=== PATIENT | female | born 1965 | race Caucasian/White ===

== ENCOUNTER → 2016-12-05 | Outpatient (REF) | payer OTHER ==
[~2016-12-05] MED LIST: IBUP60TA PO; LISI40TAB PO; VICO5TAB16 PO; WELL75TA PO; valtrex OR
[2016-12-05 18:26] LABS: ALBUMIN 3.8 GM/DL (3.2-5.2); ALBUMIN/GLOBULIN RATIO 1.19 (1.00-1.93); ALKALINE PHOSPHATASE 83 U/L (45-117); ALT/SGPT 21 U/L (12-78); ANION GAP 10 MEQ/L (8-16); AST/SGOT 11 U/L (15-37); BILIRUBIN,TOTAL 0.2 MG/DL (0.2-1.0); BLOOD UREA NITROGEN 13 MG/DL (7-18); CALCIUM LEVEL 9.3 MG/DL (8.5-10.1); CARBON DIOXIDE LEVEL 30 MEQ/L (21-32); CHLORIDE LEVEL 102 MEQ/L (98-107); CHOLESTEROL LEVEL 255 MG/DL (<200); CREATININE FOR GFR 0.62 MG/DL (0.55-1.02); FREE T4 0.82 NG/DL (0.76-1.46); GLOMERULAR FILTRATION RATE > 60.0 (>51); GLUCOSE, FASTING 90 MG/DL (70-105); POTASSIUM SERUM 4.6 MEQ/L (3.5-5.1); SODIUM LEVEL 142 MEQ/L (136-145); TRIGLYCERIDES LEVEL 244 MG/DL (<150)
[2016-12-05 19:19] LABS: MEAN CORPUSCULAR HEMOGLOBIN 31.7 pg (27.0-33.0); MEAN CORPUSCULAR HGB CONC 34.1 g/dl (32.0-36.5); RED CELL DISTRIBUTION WIDTH 12.4 % (11.5-14.5); WHITE BLOOD COUNT 6.3 K/mm3 (4.0-10.0)
== END ==
LOC: M SFHCLERA 14:42
PROVIDERS: ATTEND Family Medicine
DX: E89.41 Symptomatic postprocedural ovarian failure (principal)

== ENCOUNTER → 2017-04-15 | Outpatient (CLI) | payer OTHER ==
--- NOTE | 2017-04-15 11:57 | REPMRS ---
Patient History The patient states she has not had a clinical breast exam in over a year. Patient is postmenopausal. Family history of breast cancer in paternal grandmother at age 50 or over and endometrial cancer in maternal grandmother at age 50 or over. Reductions of both breasts, 2009. Digital Mammo Screening Bilat: April 15, 2017 - Exam #: [id number] Bilateral CC and MLO view(s) were taken. Technologists: Kasey Chaves, Technologist; Aravind Cole, Technologist Prior study comparison: April 01, 2015, digital woman screen mammo, performed at [facility]. October 19, 2011, digital bilateral screening mammo, performed at [facility]. FINDINGS: There are scattered fibroglandular densities. There has been no change in the appearance of the mammogram from the prior studies. There is a mild amount of scattered fibroglandular density which is fairly symmetric. There is no interval development of dominant mass, architectural distortion, or clustered microcalcification suggestive of malignancy. ASSESSMENT: BI-RADS/ACR category 1 mammogram. Negative. Recommendation Routine screening mammogram in 1 year (for women over age 40). This mammogram was interpreted with the aid of an FDA-approved computer-aided dectection system. Electronically Signed By: Cosmo Dominique MD 04/15/17 [id number]
== END ==
LOC: M RAD 09:56
PROVIDERS: ATTEND Family Medicine
DX: Z12.31 Encounter for screening mammogram for malignant neoplasm of breast (principal)

== ENCOUNTER → 2017-05-28 | Outpatient (REF) | payer OTHER | LOC: M SFHCLERA 13:46 | PROVIDERS: ATTEND Family Medicine | DX: N30.00 Acute cystitis without hematuria (principal) ==

== ENCOUNTER → 2018-10-03 | Outpatient (REF) | payer OTHER ==
[2018-10-03 15:55] LABS: BASO % 0.4 % (0.0-1.0); EOS # 0.1 10^3/uL (0.0-0.50); HEMATOCRIT 45.6 % (36.0-47.0); HEMOGLOBIN 15.1 g/dl (12.0-15.5); LYMPH # 1.9 10^3/uL (1.5-4.5); LYMPH % 37.1 % (24.0-44.0); MEAN CORPUSCULAR HEMOGLOBIN 29.9 pg (27.0-33.0); MEAN CORPUSCULAR HGB CONC 33.1 g/dl (32.0-36.5); MEAN CORPUSCULAR VOLUME 90.3 fl (80.0-96.0); MONO # 0.4 10^3/uL (0.0-0.8); MONO % 7.2 % (0.0-5.0); NEUTROPHILS # 2.7 10^3/uL (1.8-7.7); NEUTROPHILS % 53.3 % (36.0-66.0); PLATELET COUNT, AUTOMATED 380 10^3/uL (150-450); RED BLOOD COUNT 5.05 10^6/uL (4.00-5.40)
[2018-10-03 16:00] LABS: ALBUMIN 4.2 GM/DL (3.2-5.2); ALT/SGPT 29 U/L (12-78); BILIRUBIN,TOTAL 0.5 MG/DL (0.2-1.0); BLOOD UREA NITROGEN 14 MG/DL (7-18); CALCIUM LEVEL 8.8 MG/DL (8.5-10.1); CARBON DIOXIDE LEVEL 30 MEQ/L (21-32); CHLORIDE LEVEL 101 MEQ/L (98-107); CHOLESTEROL LEVEL 257 MG/DL (<200); CHOLESTEROL RISK RATIO 3.953 (<5); CREATININE FOR GFR 0.71 MG/DL (0.55-1.30); GLOMERULAR FILTRATION RATE > 60.0 (>51); GLUCOSE, FASTING 90 MG/DL (70-100); HDL CHOLESTEROL 65 MG/DL (>40); LDL CHOLESTEROL 169 MG/DL (<100); NON-HDL-C 192 MG/DL; POTASSIUM SERUM 4.3 MEQ/L (3.5-5.1); SODIUM LEVEL 140 MEQ/L (136-145); TOTAL PROTEIN 7.8 GM/DL (6.4-8.2); TRIGLYCERIDES LEVEL 115 MG/DL (<150)
[2018-10-03 16:20] LABS: HEMOGLOBIN A1c 5.8 %
== END ==
LOC: M SFHCLERA 15:40
PROVIDERS: ATTEND Nurse Practitioner Family
DX: I10 Essential (primary) hypertension (principal); E78.2 Mixed hyperlipidemia

== ENCOUNTER → 2018-10-24 | Outpatient (CLI) | payer OTHER ==
[~2018-10-24] MED LIST changes: +IBUP600T42 PO; -IBUP60TA PO; +LISI40TA52 PO; -LISI40TAB PO; -VICO5TAB16 PO; +VICO5TAB17 PO
--- NOTE | 2018-10-24 16:17 | REPMRS ---
Patient History The patient states she has not had a clinical breast exam in over a year. Family history of breast cancer at age 50 or over in paternal grandmother, endometrial cancer at age 50 or over in maternal grandmother. Reductions of both breasts, 2009. Digital Mammo Screening Bilat: October 24, 2018 - Exam #: [id number] Bilateral CC and MLO view(s) were taken. Technologist: Ronel Baron, Technologist Prior study comparison: April 15, 2017, bilateral digital mammo screening bilat performed at [facility]. April 01, 2015, digital woman screen mammo, performed at [facility]. October 19, 2011, digital bilateral screening mammo, performed at [facility]. FINDINGS: There are scattered fibroglandular densities. There has been no change in the appearance of the mammogram from the prior studies. There is a mild amount of scattered fibroglandular density which is fairly symmetric. There is no interval development of dominant mass, architectural distortion, or clustered microcalcification suggestive of malignancy. 3-D tomosynthesis shows no additional findings. Assessment: BI-RADS/ACR category 1 mammogram. Negative Mammogram. Recommendation Routine screening mammogram of both breasts in 1 year (for women over age 40). This patient's Lifetime Breast Cancer RIsk is estimated at 13.9 %. This mammogram was interpreted with the aid of an FDA-approved computer-aided dectection system. Electronically Signed By: Cosmo Dominique MD 10/24/18 [id number]
== END ==
LOC: M RAD 14:53
PROVIDERS: ATTEND Nurse Practitioner Family
DX: Z12.31 Encounter for screening mammogram for malignant neoplasm of breast (principal)

== ENCOUNTER → 2019-02-23 | Outpatient (CLI) | payer OTHER ==
--- NOTE | 2019-02-23 14:41 | REP ---
REASON: Pain. There is minimal patellar marginal osteophytosis. The compartments are symmetric and well maintained. There is no fracture, dislocation, or subluxation. IMPRESSION: Slight chronic changes as described above. Electronically Signed by Adams Kang DO 02/23/2019 04:39 P
== END ==
LOC: M LRY 10:03
PROVIDERS: ATTEND Nurse Practitioner Family
DX: M25.762 Osteophyte, left knee (principal)

== ENCOUNTER → 2019-12-07 | Outpatient (CLI) | payer OTHER ==
--- NOTE | 2019-12-08 01:41 | REPPI ---
Clinical: Degenerative lower back pain. Technique: AP, lateral, bilateral oblique, and coned-down views of the lumbosacral spine. Findings: Alignment and lordosis maintained. Vertebral bodies are intact. No acute fracture / compression injury or subluxation. Mild hypertrophic facet changes at L3 through S1 along with minimal endplate sclerosis and minimal disc space narrowing suggested. Remainder examination appears normal. No obvious spondylolysis or spondylolisthesis. Impression: Mild degenerative spondylosis involving the lower lumbar spine. Electronically Signed by Thomas Dodson MD 12/08/2019 01:33 A
== END ==
LOC: M PLAIMG 14:47
PROVIDERS: ATTEND Physician Assistant Medical
DX: M51.36 Other intervertebral disc degeneration, lumbar region (principal)

== ENCOUNTER → 2020-05-06 | Outpatient (REF) | payer OTHER ==
[2020-05-06 13:06] LABS: BASO % 0.7 % (0.0-1.0); EOS # 0.2 10^3/uL (0.0-0.5); EOS % 2.5 % (0.0-3.0); HEMATOCRIT 42.8 % (36.0-47.0); HEMOGLOBIN 13.4 g/dl (12.0-15.5); LYMPH # 2.3 10^3/uL (1.5-5.0); LYMPH % 38.1 % (24.0-44.0); MEAN CORPUSCULAR HEMOGLOBIN 28.6 pg (27.0-33.0); MEAN CORPUSCULAR HGB CONC 31.3 g/dl (32.0-36.5); MEAN CORPUSCULAR VOLUME 91.3 fl (80.0-96.0); MONO # 0.4 10^3/uL (0.0-0.8); MONO % 6.8 % (0.0-5.0); NEUTROPHILS # 3.1 10^3/uL (1.5-8.5); NEUTROPHILS % 51.6 % (36.0-66.0); PLATELET COUNT, AUTOMATED 357 10^3/uL (150-450); RED BLOOD COUNT 4.69 10^6/uL (4.00-5.40)
[2020-05-06 13:29] LABS: ALBUMIN 3.7 GM/DL (3.2-5.2); ALT/SGPT 25 U/L (12-78); BILIRUBIN,TOTAL 0.3 MG/DL (0.2-1.0); BLOOD UREA NITROGEN 13 MG/DL (7-18); CALCIUM LEVEL 9.2 MG/DL (8.5-10.1); CARBON DIOXIDE LEVEL 30 MEQ/L (21-32); CHLORIDE LEVEL 104 MEQ/L (98-107); CHOLESTEROL LEVEL 239 MG/DL (<200); CHOLESTEROL RISK RATIO 3.414 (<5); CREATININE FOR GFR 0.72 MG/DL (0.55-1.30); GLOMERULAR FILTRATION RATE > 60.0 (>51); GLUCOSE, FASTING 90 MG/DL (70-100); HDL CHOLESTEROL 70 MG/DL (>40); LDL CHOLESTEROL 145 MG/DL (<100); NON-HDL-C 169 MG/DL; POTASSIUM SERUM 4.4 MEQ/L (3.5-5.1); SODIUM LEVEL 139 MEQ/L (136-145); TOTAL PROTEIN 7.4 GM/DL (6.4-8.2); TRIGLYCERIDES LEVEL 120 MG/DL (<150)
[2020-05-06 13:35] LABS: TOTAL 25(OH) VITAMIN D 69.5 NG/ML (30.0-100.0)
== END ==
LOC: M PLALAB 09:56
PROVIDERS: ATTEND Nurse Practitioner Family
DX: Z00.00 Encounter for general adult medical examination without abnormal findings (principal)

== ENCOUNTER → 2020-05-06 | Outpatient (CLI) | payer OTHER ==
--- NOTE | 2020-05-06 11:10 | REPMRS ---
Patient History The patient states she had a clinical breast exam in September 2019. Family history of breast cancer at age 50 or over in paternal grandmother, endometrial cancer at age 50 or over in maternal grandmother. Reductions of both breasts, 2008. 3D TOMOSYNTHESIS WAS PERFORMED. The [place] lifetime risk for breast cancer is 13.3%. Volpara breast density b. Digital Woman Screen Mammo: May 06, 2020 - Exam #: [id number] Bilateral CC and MLO view(s) were taken. Technologist: RT Ольга Prior study comparison: October 24, 2018, bilateral digital mammo screening bilat, performed at [facility]. April 15, 2017, bilateral digital mammo screening bilat, performed at [facility]. FINDINGS: There are scattered fibroglandular densities. There has been no change in the appearance of the mammogram from the prior studies. There is a mild amount of residual fibroglandular tissue which is fairly symmetric. There is no interval development of dominant mass, architectural distortion, or clustered microcalcification suggestive of malignancy. Assessment: BI-RADS/ACR category 1 mammogram. Negative Mammogram. Recommendation Routine screening mammogram in 1 year (for women over age 40). This mammogram was interpreted with the aid of an FDA-approved computer-aided dectection system. Electronically Signed By: Kevin Harris MD 05/06/20 [id number]
== END ==
LOC: M WHC 10:07
PROVIDERS: ATTEND Nurse Practitioner Family
DX: Z12.31 Encounter for screening mammogram for malignant neoplasm of breast (principal); Z98.890 Other specified postprocedural states

== ENCOUNTER → 2020-10-23 | Outpatient (REF) | payer OTHER | LOC: M LAB REF 17:42 | PROVIDERS: ATTEND Physician Assistant | DX: R30.0 Dysuria (principal) ==

== ENCOUNTER → 2020-10-31 | Outpatient (REF) | payer OTHER | LOC: M SFHCLERA 10:56 | PROVIDERS: ATTEND Nurse Practitioner Family | DX: R35.0 Frequency of micturition (principal) ==

== ENCOUNTER → 2020-11-24 | Outpatient (REF) | payer OTHER | LOC: M SFHCLERA 15:58 | PROVIDERS: ATTEND Nurse Practitioner Family | DX: R35.0 Frequency of micturition (principal) ==

== ENCOUNTER → 2021-02-14 | Outpatient (REF) | payer OTHER ==
[2021-02-14 13:14] LABS: APPEARANCE, URINE HAZY (CLEAR); BACTERIA, URINE AUTO 1+ (NEGATIVE); BILIRUBIN, URINE AUTO NEGATIVE (NEGATIVE); BLOOD, URINE BLOOD NEGATIVE (NEGATIVE); COLOR, URINE YELLOW (YELLOW); GLUCOSE, URINE (UA) AUTO NEGATIVE (NEGATIVE); KETONE, URINE AUTO NEGATIVE (NEGATIVE); LEUKOCYTE ESTERASE, URINE AUTO 1+ (NEGATIVE); MUCUS, URINE SMALL (NEGATIVE); NITRITE, URINE AUTO NEGATIVE (NEGATIVE); PROTEIN, URINE AUTO NEGATIVE (NEGATIVE); RBC, URINE AUTO 0 /HPF (0-3); SPECIFIC GRAVITY URINE AUTO 1.025 (1.002-1.035); SQUAMOUS EPITHELIAL CELL UR AU 0 /HPF (0-6); UROBILINOGEN, URINE AUTO 0.2 mg/dL (0.0-2.0); WBC, URINE AUTO 37 /HPF (0-3)
== END ==
LOC: M SMT 11:12
PROVIDERS: ATTEND Nurse Practitioner Family
DX: R39.89 Other symptoms and signs involving the genitourinary system (principal)

== ENCOUNTER → 2021-02-21 | Outpatient (REF) | payer OTHER ==
[2021-02-21 20:27] LABS: APPEARANCE, URINE CLEAR (CLEAR); BACTERIA, URINE AUTO NEGATIVE (NEGATIVE); BILIRUBIN, URINE AUTO NEGATIVE (NEGATIVE); BLOOD, URINE BLOOD NEGATIVE (NEGATIVE); COLOR, URINE STRAW (YELLOW); GLUCOSE, URINE (UA) AUTO NEGATIVE (NEGATIVE); KETONE, URINE AUTO NEGATIVE (NEGATIVE); LEUKOCYTE ESTERASE, URINE AUTO NEGATIVE (NEGATIVE); NITRITE, URINE AUTO NEGATIVE (NEGATIVE); PROTEIN, URINE AUTO NEGATIVE (NEGATIVE); RBC, URINE AUTO 0 /HPF (0-3); SPECIFIC GRAVITY URINE AUTO 1.008 (1.002-1.035); SQUAMOUS EPITHELIAL CELL UR AU 0 /HPF (0-6); UROBILINOGEN, URINE AUTO 0.2 mg/dL (0.0-2.0); WBC, URINE AUTO 0 /HPF (0-3)
== END ==
LOC: M LAB REF 19:59
PROVIDERS: ATTEND Nurse Practitioner Family
DX: N39.0 Urinary tract infection, site not specified (principal)

== ENCOUNTER → 2021-04-24 | Outpatient (CLI) | payer OTHER ==
[2021-04-24 20:17] LABS: HEMOGLOBIN A1c 5.6 %
== END ==
LOC: M WUC 15:52
PROVIDERS: ATTEND Surgery
DX: Z86.39 Personal history of other endocrine, nutritional and metabolic disease (principal)

== ENCOUNTER → 2021-09-06 | Outpatient (CLI) | payer OTHER | LOC: M WHC 12:39 | PROVIDERS: ATTEND Nurse Practitioner Family | DX: Z12.31 Encounter for screening mammogram for malignant neoplasm of breast (principal) ==

== ENCOUNTER → 2021-10-30 | Outpatient (REF) | payer OTHER ==
[~2021-10-30] MED LIST changes: +AMOX500C PO; +FLUC10TA PO; +GABA-1171 PO; +HYDR-3490 PO; +LEXA1TAB2 PO
== END ==
LOC: M SFHCLERA 15:38
PROVIDERS: ATTEND Family Medicine
DX: J02.9 Acute pharyngitis, unspecified (principal)

== ENCOUNTER → 2021-11-01 | Outpatient (CLI) | payer OTHER | LOC: M LABSMTC 09:46 | PROVIDERS: ATTEND Anesthesiology | DX: Z01.818 Encounter for other preprocedural examination (principal); Z11.52 Encounter for screening for COVID-19 ==

== ENCOUNTER 2021-11-06 09:21 | Day surgery (SDC) | payer OTHER ==
[~2021-11-06] VITALS: Ht 152.4 cm; Wt 99.5 kg
[~2021-11-06 09:21] MED LIST changes: +NS 1,000 ML IV ONE
[2021-11-06] MEDS ORDERED: fentaNYL 100 MCG/2 ML INJECTION As Ordered ONE (11:02)
[2021-11-06] MEDS ORDERED: LIDOCAINE 2% 100MG/5ML SDV (FOR ANES.) As Ordered ONE (11:22)
[2021-11-06] MEDS ORDERED: propofoL 200 MG/20 ML VIAL As Ordered ONE (11:22)
[2021-11-06 11:39] VITALS: BP 145/95
== END 2021-11-06 11:40 | disposition home or self-care (01) ==
LOC: M OPP 09:21
PROVIDERS: ATTEND Internal Medicine Gastroenterology
DX: Z01.818 Encounter for other preprocedural examination (principal); E66.01 Morbid (severe) obesity due to excess calories; K29.70 Gastritis, unspecified, without bleeding; Z79.1 Long term (current) use of non-steroidal anti-inflammatories (NSAID); Z79.899 Other long term (current) drug therapy; Z80.3 Family history of malignant neoplasm of breast; Z80.52 Family history of malignant neoplasm of bladder
CPT/HCPCS: 43239; 88305; J3010

== ENCOUNTER → 2022-01-15 | Outpatient (CLI) | payer OTHER ==
[~2022-01-15] MED LIST changes: -NS 1,000 ML IV ONE
[2022-01-15 11:33] LABS: BASO % 0.7 % (0.0-1.0); EOS # 0.1 10^3/uL (0.0-0.5); HEMATOCRIT 41.7 % (36.0-47.0); HEMOGLOBIN 13.6 g/dl (12.0-15.5); LYMPH # 2.1 10^3/uL (1.5-5.0); LYMPH % 35.2 % (24.0-44.0); MEAN CORPUSCULAR HEMOGLOBIN 29.9 pg (27.0-33.0); MEAN CORPUSCULAR HGB CONC 32.6 g/dl (32.0-36.5); MEAN CORPUSCULAR VOLUME 91.6 fl (80.0-96.0); MONO # 0.5 10^3/uL (0.0-0.8); MONO % 7.6 % (2.0-8.0); NEUTROPHILS # 3.3 10^3/uL (1.5-8.5); NEUTROPHILS % 54.2 % (36.0-66.0); PLATELET COUNT, AUTOMATED 380 10^3/uL (150-450); RED BLOOD COUNT 4.55 10^6/uL (4.00-5.40)
[2022-01-15 17:44] LABS: ALBUMIN 3.6 GM/DL (3.2-5.2); ALT/SGPT 30 U/L (12-78); BILIRUBIN,TOTAL 0.4 MG/DL (0.2-1.0); BLOOD UREA NITROGEN 10 MG/DL (7-18); CALCIUM LEVEL 9.3 MG/DL (8.5-10.1); CARBON DIOXIDE LEVEL 31 MEQ/L (21-32); CHLORIDE LEVEL 107 MEQ/L (98-107); CREATININE FOR GFR 0.67 MG/DL (0.55-1.30); GLOMERULAR FILTRATION RATE > 60.0 (>51); GLUCOSE, FASTING 103 MG/DL (70-100); POTASSIUM SERUM 4.1 MEQ/L (3.5-5.1); SODIUM LEVEL 141 MEQ/L (136-145); TOTAL PROTEIN 6.9 GM/DL (6.4-8.2)
== END ==
LOC: M WUC 09:04
PROVIDERS: ATTEND Surgery
DX: Z01.812 Encounter for preprocedural laboratory examination (principal); Z86.39 Personal history of other endocrine, nutritional and metabolic disease

== ENCOUNTER → 2022-03-22 | Outpatient (CLI) | payer OTHER ==
[2022-03-22 17:21] LABS: BASO # 0.1 10^3/uL (0.0-0.2); BASO % 0.5 % (0.0-1.0); EOS # 0.1 10^3/uL (0.0-0.5); EOS % 1.5 % (0.0-3.0); HEMATOCRIT 42.1 % (36.0-47.0); HEMOGLOBIN 14.1 g/dl (12.0-15.5); LYMPH # 3.5 10^3/uL (1.5-5.0); LYMPH % 37.2 % (24.0-44.0); MEAN CORPUSCULAR HEMOGLOBIN 30.8 pg (27.0-33.0); MEAN CORPUSCULAR HGB CONC 33.5 g/dl (32.0-36.5); MEAN CORPUSCULAR VOLUME 91.9 fl (80.0-96.0); MONO # 0.6 10^3/uL (0.0-0.8); MONO % 6.7 % (2.0-8.0); NEUTROPHILS # 5.1 10^3/uL (1.5-8.5); NEUTROPHILS % 53.7 % (36.0-66.0); PLATELET COUNT, AUTOMATED 405 10^3/uL (150-450); RED BLOOD COUNT 4.58 10^6/uL (4.00-5.40); WHITE BLOOD COUNT 9.4 10^3/uL (4.0-10.0)
[2022-03-22 18:10] LABS: ALT/SGPT 26 U/L (12-78); BILIRUBIN,TOTAL 0.4 MG/DL (0.2-1.0); BLOOD UREA NITROGEN 10 MG/DL (7-18); CALCIUM LEVEL 9.2 MG/DL (8.5-10.1); CARBON DIOXIDE LEVEL 28 MEQ/L (21-32); CHLORIDE LEVEL 103 MEQ/L (98-107); CREATININE FOR GFR 0.68 MG/DL (0.55-1.30); GLOMERULAR FILTRATION RATE > 60.0 (>51); GLUCOSE, FASTING 98 MG/DL (70-100); POTASSIUM SERUM 3.9 MEQ/L (3.5-5.1); SODIUM LEVEL 138 MEQ/L (136-145); TOTAL PROTEIN 7.4 GM/DL (6.4-8.2)
== END ==
LOC: M WUC 15:27
PROVIDERS: ATTEND Surgery
DX: Z01.812 Encounter for preprocedural laboratory examination (principal); Z86.39 Personal history of other endocrine, nutritional and metabolic disease

== ENCOUNTER → 2022-04-23 | Outpatient (CLI) | payer OTHER ==
[2022-04-23 11:18] LABS: BASO # 0.1 10^3/uL (0.0-0.2); EOS # 0.1 10^3/uL (0.0-0.5); EOS % 2.4 % (0.0-3.0); HEMOGLOBIN 13.7 g/dl (12.0-15.5); LYMPH # 1.9 10^3/uL (1.5-5.0); LYMPH % 38.8 % (24.0-44.0); MEAN CORPUSCULAR HGB CONC 32.6 g/dl (32.0-36.5); MEAN CORPUSCULAR VOLUME 91.9 fl (80.0-96.0); MONO # 0.3 10^3/uL (0.0-0.8); MONO % 6.4 % (2.0-8.0); NEUTROPHILS # 2.5 10^3/uL (1.5-8.5); PLATELET COUNT, AUTOMATED 339 10^3/uL (150-450); RED BLOOD COUNT 4.57 10^6/uL (4.00-5.40)
[2022-04-23 11:22] LABS: HEMATOCRIT 41.5 % (36.0-47.0)
[2022-04-23 12:13] LABS: HEMOGLOBIN A1c 5.6 %
[2022-04-23 12:20] LABS: ALBUMIN 3.9 GM/DL (3.2-5.2); ALT/SGPT 27 U/L (12-78); BILIRUBIN,TOTAL 0.3 MG/DL (0.2-1.0); BLOOD UREA NITROGEN 11 MG/DL (7-18); CALCIUM LEVEL 9.2 MG/DL (8.5-10.1); CARBON DIOXIDE LEVEL 26 MEQ/L (21-32); CHLORIDE LEVEL 107 MEQ/L (98-107); CREATININE FOR GFR 0.56 MG/DL (0.55-1.30); FERRITIN 94 NG/ML (8-252); GLOMERULAR FILTRATION RATE > 60.0 (>51); GLUCOSE, FASTING 74 MG/DL (70-100); IRON (FE) 103 UG/DL (50-170); MAGNESIUM LEVEL 2.1 MG/DL (1.8-2.4); PERCENT SATURATION 37.7 % (13.2-45.0); PHOSPHORUS LEVEL 3.6 MG/DL (2.5-4.9); SODIUM LEVEL 140 MEQ/L (136-145); TOTAL IRON BINDING CAPACITY 273 UG/DL (250-450); TOTAL PROTEIN 6.8 GM/DL (6.4-8.2)
[2022-04-23 13:15] LABS: TOTAL 25(OH) VITAMIN D 58.5 NG/ML (30.0-100.0); VITAMIN B12 LEVEL 1150 PG/ML (247-911)
== END ==
LOC: M WUC 08:51
PROVIDERS: ATTEND Surgery
DX: K91.2 Postsurgical malabsorption, not elsewhere classified (principal)

== ENCOUNTER → 2022-10-24 | Outpatient (CLI) | payer OTHER ==
[2022-10-24 19:46] LABS: BASO # 0.1 10^3/uL (0.0-0.2); BASO % 0.6 % (0.0-1.0); EOS # 0.1 10^3/uL (0.0-0.5); HEMATOCRIT 40.3 % (36.0-47.0); HEMATOCRIT 40.5 % (36.0-47.0); HEMOGLOBIN 13.6 g/dl (12.0-15.5); LYMPH # 2.9 10^3/uL (1.5-5.0); LYMPH % 31.5 % (24.0-44.0); MEAN CORPUSCULAR HEMOGLOBIN 30.8 pg (27.0-33.0); MEAN CORPUSCULAR HGB CONC 33.6 g/dl (32.0-36.5); MEAN CORPUSCULAR VOLUME 91.8 fl (80.0-96.0); MONO # 0.4 10^3/uL (0.0-0.8); MONO % 4.8 % (2.0-8.0); NEUTROPHILS # 5.6 10^3/uL (1.5-8.5); NEUTROPHILS % 61.9 % (36.0-66.0); PLATELET COUNT, AUTOMATED 358 10^3/uL (150-450); RED BLOOD COUNT 4.41 10^6/uL (4.00-5.40); WHITE BLOOD COUNT 9.1 10^3/uL (4.0-10.0)
[2022-10-24 19:47] LABS: TOTAL IRON BINDING CAPACITY 320 UG/DL (250-425)
[2022-10-24 19:48] LABS: ALKALINE PHOSPHATASE 71 U/L (46-116); ALT/SGPT 18 U/L (7.0-40); AST/SGOT 14 U/L (<34); BILIRUBIN,TOTAL 0.4 MG/DL (0.3-1.2); BLOOD UREA NITROGEN 26 MG/DL (9-23); CALCIUM LEVEL 9.5 MG/DL (8.5-10.1); CARBON DIOXIDE LEVEL 30 MMOL/L (20-31); CHLORIDE LEVEL 99 MMOL/L (98-107); CREATININE FOR GFR 0.56 MG/DL (0.55-1.30); GLOMERULAR FILTRATION RATE > 60.0 (>51); GLUCOSE, FASTING 91 MG/DL (60-100); IRON (FE) 41 UG/DL (50-170); MAGNESIUM LEVEL 2.1 MG/DL (1.8-2.4); PERCENT SATURATION 12.8 % (13.2-45.0); PHOSPHORUS LEVEL 3.7 MG/DL (2.5-4.9); POTASSIUM SERUM 3.6 MMOL/L (3.5-5.1); SODIUM LEVEL 135 MMOL/L (136-145); TOTAL PROTEIN 7.2 G/DL (5.7-8.2)
[2022-10-24 19:50] LABS: FERRITIN 62.2 NG/ML (7.3-270.7); TOTAL 25(OH) VITAMIN D 60.1 NG/ML (20.0-100.0); VITAMIN B12 LEVEL 1252 PG/ML (211-911)
[2022-10-24 20:51] LABS: HEMOGLOBIN A1c 5.2 % (4.0-6.0)
== END ==
LOC: M WUC 15:18
PROVIDERS: ATTEND Physician Assistant Surgical
DX: K91.2 Postsurgical malabsorption, not elsewhere classified (principal); Z98.84 Bariatric surgery status; E55.9 Vitamin D deficiency, unspecified; Z86.39 Personal history of other endocrine, nutritional and metabolic disease

== ENCOUNTER → 2022-11-16 | Outpatient (CLI) | payer OTHER | LOC: M WHC 12:30 | PROVIDERS: ATTEND Specialist | DX: Z12.31 Encounter for screening mammogram for malignant neoplasm of breast (principal) ==

== ENCOUNTER → 2023-11-07 | Outpatient (CLI) | payer OTHER ==
[2023-11-07 11:18] LABS: BASO % 0.8 % (0.0-1.0); EOS # 0.1 10^3/uL (0.0-0.5); EOS % 1.8 % (0.0-3.0); HEMATOCRIT 39.6 % (36.0-47.0); HEMOGLOBIN 13.1 g/dl (12.0-15.5); LYMPH # 2.2 10^3/uL (1.5-5.0); LYMPH % 44.4 % (24.0-44.0); MEAN CORPUSCULAR HEMOGLOBIN 30.5 pg (27.0-33.0); MEAN CORPUSCULAR HGB CONC 33.1 g/dl (32.0-36.5); MEAN CORPUSCULAR VOLUME 92.3 fl (80.0-96.0); MONO # 0.4 10^3/uL (0.0-0.8); MONO % 7.7 % (2.0-8.0); NEUTROPHILS # 2.2 10^3/uL (1.5-8.5); NEUTROPHILS % 45.3 % (36.0-66.0); PLATELET COUNT, AUTOMATED 355 10^3/uL (150-450); RED BLOOD COUNT 4.29 10^6/uL (4.00-5.40); WHITE BLOOD COUNT 4.9 10^3/uL (4.0-10.0)
[2023-11-07 11:48] LABS: IRON (FE) 119 UG/DL (50-170); PERCENT SATURATION 37.4 % (13.2-45.0); TOTAL IRON BINDING CAPACITY 318 UG/DL (250-425)
[2023-11-07 11:49] LABS: ALBUMIN 3.9 G/DL (3.2-5.2); ALKALINE PHOSPHATASE 58 U/L (46-116); ALT/SGPT 20 U/L (7.0-40); AST/SGOT 11 U/L (<34); BILIRUBIN,TOTAL 0.6 MG/DL (0.3-1.2); BLOOD UREA NITROGEN 16 MG/DL (9-23); CALCIUM LEVEL 9.2 MG/DL (8.5-10.1); CARBON DIOXIDE LEVEL 30 MMOL/L (20-31); CHLORIDE LEVEL 105 MMOL/L (98-107); CHOLESTEROL LEVEL 250 MG/DL (<200); GLOMERULAR FILTRATION RATE > 60.0 (>51); GLUCOSE, FASTING 84 MG/DL (60-100); LDL CHOLESTEROL 146.4 MG/DL (<100); POTASSIUM SERUM 4.2 MMOL/L (3.5-5.1); SODIUM LEVEL 138 MMOL/L (136-145); TOTAL PROTEIN 6.6 G/DL (5.7-8.2); TRIGLYCERIDES LEVEL 73 MG/DL (<150)
[2023-11-07 11:51] LABS: FERRITIN 79.6 NG/ML (7.3-270.7); TOTAL 25(OH) VITAMIN D 55.8 NG/ML (20.0-100.0)
[2023-11-07 11:52] LABS: FOLATE > 24.00 NG/ML (>5.4)
[2023-11-07 11:53] LABS: VITAMIN B12 LEVEL 1766 PG/ML (211-911)
== END ==
LOC: M WUC 08:17
PROVIDERS: ATTEND Family Medicine
DX: E66.3 Overweight (principal); Z98.84 Bariatric surgery status

== ENCOUNTER → 2023-11-29 | Outpatient (CLI) | payer OTHER | LOC: M WHC 09:38 | PROVIDERS: ATTEND Family Medicine | DX: Z12.31 Encounter for screening mammogram for malignant neoplasm of breast (principal) ==

== ENCOUNTER 2024-07-24 11:13 | Emergency (ER) | payer OTHER ==
[2024-07-24] MEDS ORDERED: LISI20TA33 PO (11:31)
[2024-07-24 12:05] LABS: BASO % 0.4 % (0.0-1.0); EOS % 0.5 % (0.0-3.0); HEMATOCRIT 36.1 % (36.0-47.0); HEMOGLOBIN 12.6 g/dl (12.0-15.5); LYMPH % 25.1 % (24.0-44.0); MEAN CORPUSCULAR HEMOGLOBIN 31.1 pg (27.0-33.0); MEAN CORPUSCULAR HGB CONC 34.9 g/dl (32.0-36.5); MEAN CORPUSCULAR VOLUME 89.1 fl (80.0-96.0); MONO # 0.3 10^3/uL (0.0-0.8); MONO % 3.8 % (2.0-8.0); NEUTROPHILS # 5.6 10^3/uL (1.5-8.5); NEUTROPHILS % 70.1 % (36.0-66.0); PLATELET COUNT, AUTOMATED 363 10^3/uL (150-450); RED BLOOD COUNT 4.05 10^6/uL (4.00-5.40)
[2024-07-24] MEDS ORDERED: ISOVUE-370 76% 100ML VIAL As Ordered ONE (12:06)
[2024-07-24 12:19] LABS: INR 0.96; PARTIAL THROMBOPLASTIN TIME 26.8 SECONDS (24.8-34.2); PROTHROMBIN TIME 13.1 SECONDS (12.5-14.5)
[2024-07-24 13:09] LABS: CK-MB VALUE MASS < 1.0 NG/ML (<3.6)
[2024-07-24 13:11] LABS: CPK CREATINE PHOSPHOKINASE 41 U/L (34-145); MB/CK RELATIVE INDEX 2.43 (< OR =4)
[2024-07-24 14:42] LABS: ALKALINE PHOSPHATASE 59 U/L (35-104); ALT/SGPT 16 U/L (7.0-40); AST/SGOT 12 U/L (<34); BILIRUBIN,DIRECT < 0.1 MG/DL (<0.4); BILIRUBIN,TOTAL 0.4 MG/DL (0.3-1.2); CK-MB VALUE MASS < 1.0 NG/ML (<3.6); CPK CREATINE PHOSPHOKINASE 49 U/L (34-145); MB/CK RELATIVE INDEX 2.04 (< OR =4); TOTAL PROTEIN 7.4 G/DL (5.7-8.2)
[2024-07-24 16:14] LABS: MAGNESIUM LEVEL 2.1 MG/DL (1.8-2.4); THYROID STIMULATING HORMONE 0.677 uIU/ML (0.55-4.78)
[2024-07-24 17:45] VITALS: BP 141/77
[2024-07-24 17:46] VITALS: TEMP 98.3; O2SAT 99
== END 2024-07-24 18:18 | disposition home or self-care (01) ==
LOC: M ED 11:13
DX: R20.2 Paresthesia of skin (principal); R00.0 Tachycardia, unspecified; I10 Essential (primary) hypertension; F41.9 Anxiety disorder, unspecified; F32.A Depression, unspecified; Z79.899 Other long term (current) drug therapy
CPT/HCPCS: 36415; 70450; 70496; 70498; 71045; 80047; 80076; 82550; 82553; 83735; 84443; 84484; 85025; 85379; 85610; 85730; 86850; 86900; 86901; 93005; 93041; 94760; 99285; Q9967

== ENCOUNTER → 2024-08-13 | Outpatient (REF) | payer OTHER ==
[~2024-08-13] MED LIST changes: +LISI20TA33 PO
[2024-08-13 18:37] LABS: C REACTIVE PROTEIN QUANTITATIV 7.62 MG/DL (<1.0); CHOLESTEROL LEVEL 221 MG/DL (<200); CHOLESTEROL RISK RATIO 2.89 (<5); HDL CHOLESTEROL 76.4 MG/DL (>40); IRON (FE) 27 UG/DL (50-170); NON-HDL-C 144.6 MG/DL; PERCENT SATURATION 9.1 % (13.2-45.0); TOTAL IRON BINDING CAPACITY 297 UG/DL (250-425); TRIGLYCERIDES LEVEL 138 MG/DL (<150)
[2024-08-13 18:38] LABS: THYROID STIMULATING HORMONE 0.626 uIU/ML (0.55-4.78)
[2024-08-13 18:39] LABS: FOLATE > 24.0 NG/ML (>5.4); VITAMIN B12 LEVEL 913 PG/ML (211-911)
[2024-08-13 18:57] LABS: HEMOGLOBIN A1c 5.2 % (4.0-6.0)
== END ==
LOC: M SFHCLERA 14:53
DX: R20.2 Paresthesia of skin (principal); I10 Essential (primary) hypertension

== ENCOUNTER → 2024-11-02 | Outpatient (CLI) | payer OTHER | LOC: M EKG 07:28 | PROVIDERS: ATTEND Registered Nurse | DX: R00.0 Tachycardia, unspecified (principal); Z53.9 Procedure and treatment not carried out, unspecified reason ==

== ENCOUNTER → 2025-03-23 | Outpatient (REF) | payer OTHER | LOC: M SFHCLERA 08:06 | DX: R79.89 Other specified abnormal findings of blood chemistry (principal) ==